=== PATIENT | female | born 1980 | race Asian ===

== ENCOUNTER 2023-05-10 17:37 | Observation (INO) ==
[2023-05-10] MEDS ORDERED: Lactated Ringers 1000 ml BAG 1,000 ML IV ONE (17:53)
[2023-05-10] MEDS ORDERED: Ondansetron 4 mg VIAL 2 MG/ML 2 ml VIAL IV ONE (17:53)
[2023-05-10] MEDS ORDERED: Piperacillin/Tazobac 3.375 BAG 3.375 GM/100 ML BAG IV ONE (20:59)
[2023-05-10] MEDS ORDERED: Ondansetron 4 mg VIAL 2 MG/ML 2 ml VIAL IV PRN (23:24)
[2023-05-10] MEDS ORDERED: HYDROmorphone 1 MG/1 ML SYRINGE IV SLOW PU PRN (23:24)
[2023-05-10] MEDS ORDERED: Calcium Carb (TUMS) 500 mg CHEW TAB PO PRN (23:29)
[2023-05-10] MEDS ORDERED: D5W 1/2 NS 1000 ml BAG 1,000 ML IV SCH (23:45)
[2023-05-11] MEDS ORDERED: Piperacillin/Tazobac 3.375 BAG 3.375 GM/100 ML BAG IV SCH ×2 (03:00→04:00)
[2023-05-11] MEDS ORDERED: Lidocaine 1% w EPI 1:100,000 MDV 20 ML VIAL ONE (07:22)
[2023-05-11] MEDS ORDERED: Bupivacaine 0.5% SDV PF 30ML VIAL ONE (07:22)
[2023-05-11] MEDS ORDERED: Naloxone 0.4 mg VIAL 0.4 mg/ml 1 ml VIAL IV PRN (07:29)
[2023-05-11] MEDS ORDERED: Ondansetron 4 mg VIAL 2 MG/ML 2 ml VIAL IV PRN (07:29)
[2023-05-11] MEDS ORDERED: HYDROcodone/ACETAMIN 5/325 mg TAB PO PRN (07:29)
[2023-05-11] MEDS ORDERED: Buffered Lidocaine 1% SYRIN 1 ml INTRADERM ONE (07:29)
[2023-05-11] MEDS ORDERED: Sodium Citrate/Citric Acid LIQ 15 ML UDC PO ONE (07:29)
[2023-05-11] MEDS ORDERED: Metoclopramide 5 MG/ML VIAL (10 mg) IV PRN (07:29)
[2023-05-11] MEDS ORDERED: fentaNYL 100 mcg/2 ml 50 MCG/ML VIAL IV PRN (07:29)
[2023-05-11 07:30] LABS: ABS Basophils 0.1 10^3/uL (0.0-0.1); ABS Eosinophils 0.3 10^3/uL (0.0-0.5); ABS Lymphocytes 1.5 10^3/uL (1.0-4.8); ABS Monocytes 0.5 10^3/uL (0.0-0.9); ABS Neutrophils 5.2 10^3/uL (1.5-7.6); Eosinophil % 3.5 %; Hematocrit 42.6 % (35-45); Hemoglobin 14.6 g/dL (11.5-14.3); Lymphocyte % 19.7 %; Mean Corpuscular Hemoglobin 31.8 pg (27-33); Mean Corpuscular Hgb Conc 34.2 g/dL (31-36); Mean Corpuscular Volume 93.1 fL (80-97); Mean Platelet Volume 7.5 fL (7.5-11.2); Platelet Count 263 10^3/uL (150-450); Red Blood Count 4.58 10^6/uL (3.63-4.92); Red Cell Distribution Width 12.9 % (12-17); White Blood Count 7.4 10^3/uL (3.8-11.8)
[2023-05-11 07:45] LABS: Albumin 3.6 g/dL (3.2-5.2); Albumin/Globulin Ratio 1.6 (1-3); Creatinine, Serum 0.79 mg/dL (0.51-0.95); Globulin 2.3 g/dL (2-4); Potassium 3.9 mmol/L (3.5-5.0); Total Bilirubin 2.1 mg/dL (0.2-1.0); Total Protein 5.9 g/dL (6.4-8.9); eGFR CKD-EPI 93.9 (>60)
[2023-05-11] MEDS ORDERED: Sodium Citrate/Citric Acid LIQ 15 ML UDC ONE (07:58)
[2023-05-11] MEDS ORDERED: Rocuronium 50 mg VIAL 10 mg/ml 5 ml VIAL (50 mg) ONE (08:00)
[2023-05-11] MEDS ORDERED: Propofol 10 MG/ML 20 ML BTL ONE (08:00)
[2023-05-11] MEDS ORDERED: Lactated Ringers 1000 ml BAG 1,000 ML IV SCH (08:00)
[2023-05-11] MEDS ORDERED: Midazolam 2 mg/2 ml VIAL 1 mg/ml 2 ml VIAL (2 mg) ONE (08:01)
[2023-05-11] MEDS ORDERED: fentaNYL 100 mcg/2 ml 50 MCG/ML VIAL ONE ×2 (08:01→08:50)
[2023-05-11] MEDS ORDERED: Ondansetron 4 mg VIAL 2 MG/ML 2 ml VIAL ONE ×2 (08:02→10:00)
[2023-05-11] MEDS ORDERED: Dexamethasone IV 4 MG/ML VIAL 1 ml VIAL ONE (08:02)
[2023-05-11] MEDS ORDERED: Glucagon 1 mg VIAL KIT ONE (08:45)
[2023-05-11] MEDS ORDERED: Iohexol 180 (CONTRAST) 10 ML SDV IV ONE (08:45)
[2023-05-11] MEDS ORDERED: Acetaminophen IV 1 GM/100ML 1,000 MG/100 ML BAG IV ONE (09:27)
[2023-05-11] MEDS ORDERED: Metoclopramide 5 MG/ML VIAL (10 mg) ONE (10:00)
[2023-05-11 11:47] VITALS: BP 159/101
== END 2023-05-11 11:38 | disposition home or self-care (01) ==
LOC: ED 17:37 → EDHOLD 17:37 → SUATTDRO 23:24 → SSU 05-11 00:54
PROVIDERS: ADMIT Internal Medicine; ATTEND Surgery